=== PATIENT | female | born 1965 | race Caucasian/White ===

== ENCOUNTER 2017-07-05 17:21 | Observation (INO) ==
[2017-07-05] MEDS ORDERED: Acetaminophen 325 MG TABLET PO PRN (21:32)
[2017-07-05] MEDS ORDERED: Ondansetron 4 MG/2 ML VIAL IVP PRN (21:32)
[2017-07-05] MEDS ORDERED: *HR* Morphine 2 MG/ML SYRINGE IVP PRN (21:32)
[2017-07-05] MEDS ORDERED: *HR* Heparin 5,000 UNIT/ML VIAL IVP PRN ×2 (21:32)
[2017-07-05] MEDS ORDERED: Naloxone 0.4 MG/ML INJ IVP PRN (21:32)
[2017-07-05] MEDS: Heparin 25,000 UNIT/500 ML D5W 25,000 UNIT/500 ML BAG IVC SCH (21:45)
--- NOTE | 2017-07-05 22:19 | Internal Med History&Physical ---
Date of Encounter: 07/05/17 Time of Encounter: 20:20 Assessment and Plan (1) Left leg DVT Current visit: No Status: Acute 1. Patient remains on heparin drip per protocol. 2. Strict bedrest for now. 3. Elevate LLE. 4. Convert to oral anticoagulation once work-up completed. 5. Likely needs hypercoagulable work-up as outpatient -- can be performed by oncology at follow up. Qualifiers: Affected thrombotic vein of extremity: unspecified vein of extremity Chronicity: acute Qualified Code(s): I82.402 - Acute embolism and thrombosis of unspecified deep veins of left lower extremity (2) Pulmonary embolism Current visit: Yes Status: Suspected 1. Based upon history of SOB and chest tightness and the new finding of DVT, I have a high clinical suspicion she has PE. 2. Will order V/Q scan for the morning. 3. Will order ECHO for the morning. 4. Continue heparin drip for now. 5. May need HEM/ONC consult inpatient for further guidance. Qualifiers: Pulmonary embolism type: other Chronicity: acute Acute cor pulmonale presence: without acute cor pulmonale Qualified Code(s): I26.99 - Other pulmonary embolism without acute cor pulmonale (3) Hypothyroid Current visit: No Status: Chronic 1. Continue home medications. 2. Outpatient follow up. Qualifiers: Hypothyroidism type: unspecified Qualified Code(s): E03.9 - Hypothyroidism , unspecified (4) DVT prophylaxis Current visit: Yes Status: Acute 1. Patient has acute DVT -- on heparin drip presently. Internal Medicine - H&P: HPI Chief complaint: LLE swelling/pain; SOB; CP Admitted From: Hospital to Hospital Transfer Plans for Post Hospital Care: Home History of present illness: Ms. Iabnez is a 51 year old female who presents in transfer from [facility] ER for acute left lower extremity DVT. She complained of left lower extremity pain and swelling for the last few days. Her PCP ordered Dopplers of her left lower extremity which revealed acute thrombus. She was therefore transferred here to [facility] on a heparin drip. Upon my assessment of the patient, she states she has had multiple PEs in the past and had been on Coumadin for 4 years. She has been off of Coumadin since 2012. She states that the pain, swelling, and cramping her left lower extremity actually started about 3 weeks ago and she sought treatment recently by her PCP. Shortly after her leg pains, she also developed some shortness of breath with exertion and some vague chest tightness as well. Given her prior history of PE, current DVT findings, and above symptoms, I have a high clinical index of suspicion for PE presently. She will remain on heparin drip and we will proceed with workup in the morning including a VQ scan and echocardiogram. I would like to hold off on CT angiogram of the chest given her chronic kidney disease. Regarding her PE history, she states she has never had a hypercoagulable workup. She does have history of breast cancer, however, and likely is hypercoagulable due to her cancer history. There is no familial history of blood clots that I could gather. She denies any fevers, chills, cough, chest congestion, vomiting, or diarrhea. Past Med Surg Social Fam HX - Past Medical History Attestation: Yes The following information was validated with the patient. Source: patient, old records reviewed Medical history: cancer, GERD, hyperlipidemia, hypertension, kidney stones, thyroid disease Psychiatric history: anxiety, bipolar - Past Surgical History Surgical History: breast surgery, cholecystectomy, hysterectomy - Social History Smoking Status: Former smoker Smokeless Tobacco Status: No Alcohol use: none Drug use: none Current living situation: Home, With Family Activity Level: Independent ambulation Recent Out of Country Travel Within the Last 8 Weeks: No - Family History Mother Hx Family Medical Disorders: No (no h/o DVT/PE) Father Hx Family Medical Disorders: No (no h/o DVT/PE) Internal Medicine - H&P: Meds Cholecalciferol (Vitamin D3) [Vitamin D] 1,000 unit PO DAILY 04/07/15 [History] Pantoprazole Sodium [Protonix] 40 mg PO DAILY 04/07/15 [History] Losartan Potassium [Cozaar] 75 mg PO DAILY 10/06/15 [History] Aspirin Enteric Coated [Aspirin EC] 81 mg PO DAILY 07/05/17 [History] Buspirone HCl [Buspar] 10 mg PO TID 07/05/17 [History] Carvedilol [Carvedilol] 12.5 mg PO BID 07/05/17 [History] Folic Acid 1 mg PO DAILY 07/05/17 [History] Levothyroxine [Synthroid] 88 mcg PO 0630 07/05/17 [History] Topiramate [Topamax] 50 mg PO QAM 07/05/17 [History] Trazodone HCl 100 mg PO HS 07/05/17 [History] 3 Allergy/AdvReac Type Severity Reaction Status Date / Time lisinopril Allergy Anaphylaxis Verified 07/05/17 15:25 Penicillins Allergy Hives Verified 07/05/17 15:25 - Constitutional Constitutional: no chills, no fever(s), no night sweats - EENT Eyes: no blurry vision, no change in vision Ears: no ear pain, no tinnitus Nose, mouth and throat: no nasal congestion, no sinus pressure, no sore throat - Cardiovascular Cardiovascular ROS IM: chest pain, dyspnea, dyspnea on exertion, edema ( unilateral -- LLE), no palpitations, no paroxysmal nocturnal dyspnea, no syncope - Respiratory Respiratory: dyspnea, dyspnea on exertion, no cough, no hemoptysis, no chest congestion, no excessive phlegm production, no change in phlegm color - Gastrointestinal Gastrointestinal: no abdominal pain, no diarrhea, no hematemesis, no hematochezia, no melena, no nausea, no vomiting - Genitourinary Genitourinary: no dysuria, no flank pain, no hematuria - Musculoskeletal Musculoskeletal ROS IM: limited range of motion (LLE), muscle cramps, no back pain, no joint swelling - Integumentary Integumentary IM: no rash, no jaundice - Neurological Neurological ROS: no dizziness, no focal weakness, no frequent falls - Psychiatric Psychiatric: no anxiety, no depression - Endocrine Endocrine IM: no polydipsia, no polyuria - Hematologic/Lymphatic Hematologic/Lymphatic: no easy bruising, no lymphadenopathy - Allergic/Immunologic Allergic/Immunologic: no wheezing, no GI upset with certain foods - Constitutional Vitals: Temp Pulse Resp BP Pulse Ox 97.7 F 62 16 117/73 98 07/05/17 19:34 07/05/17 19:34 07/05/17 19:34 07/05/17 19:34 07/05/17 19:34 General appearance: Present: cooperative, A&O X 3, pleasant, no acute distress, answers questions appropriately - Head Head exam: Present: atraumatic, normal inspection - Eye Eye exam: Present: EOMI, normal appearance, PERRL. Absent: scleral icterus Pupils: Present: normal accommodation - ENT ENT exam: Present: mucous membranes moist, normal exam - Neck Neck exam general surgery: Present: full ROM, supple. Absent: lymphadenopathy, tenderness - Respiratory Respiratory exam: Present: CTAB. Absent: chest wall tenderness, rales, respiratory distress, wheezes - Cardiovascular Cardiovascular exam: Present: RRR, +S1, +S2. Absent: diastolic murmur, systolic murmur - GI/Abdominal GI/Abdominal exam: Present: normal bowel sounds, soft. Absent: hepatomegaly, mass, splenomegaly, tenderness - Extremities Exam Extremities exam: Present: calf tenderness (LLE), normal capillary refill, pedal edema (unilateral ), tenderness (left calf). Absent: joint swelling - Back Exam Back exam: Absent: CVA tenderness (L), CVA tenderness (R) - Neurological Exam Neurological exam: Present: alert, CN II-XII intact, oriented X3, no focal deficits - Psychiatric Psychiatric exam: Present: normal affect, normal mood - Skin Skin exam: Present: dry, warm. Absent: rash Internal Med - H&P Results - Labs Labs: I reviewed her labs from [place] include the following: WBC 8.2 Hemoglobin 10.6 Hematocrit 31.1 Platelet count 225 PT 11.3 INR 1.1 PTT 27.5 Sodium 143 Potassium 2.7 Chloride 114 Carbon dioxide 20 BUN 19 Creatinine 1.44 Verbal report was made that she had positive Dopplers of her left lower extremity for DVT -- official report pending - VTE Reasons for not Prescribing Prophylaxis: Not indicated-Anticoagulated or INR therapeutic
[2017-07-05 22:29] LABS: Hematocrit 29.3 % (35.3-44.9); Hemoglobin 9.8 g/dL (11.5-15.4); Mean Corpuscular HGB Conc 33.4 g/dL (31.6-35.5); Mean Corpuscular Hemoglobin 29.8 pg (28.0-33.3); Mean Corpuscular Volume 89.1 fL (83.0-100.0); Mean Platelet Volume 9.9 fL (9.4-12.4); Platelet Count 201 K/mcL (140-400); Red Blood Count 3.29 M/mcL (3.82-4.97); Red Cell Distribution Width 12.1 % (11.5-14.5)
[2017-07-05 22:34] LABS: INR 1.1; Prothrombin Time 12.1 Seconds (9.4-12.1)
[2017-07-05] MEDS: 0.9 % Sodium Chloride 1,000 ML IVC SCH (22:44)
[2017-07-05] MEDS ORDERED: traZODone 50 MG TABLET PO SCH (23:58)
[2017-07-06 04:07] LABS: Hematocrit 28.6 % (35.3-44.9); Hemoglobin 9.6 g/dL (11.5-15.4); Immature Granulocytes % 0.3 % (0-4); Lymphocytes % 41.2 %; Mean Corpuscular HGB Conc 33.6 g/dL (31.6-35.5); Mean Corpuscular Hemoglobin 29.7 pg (28.0-33.3); Mean Corpuscular Volume 88.5 fL (83.0-100.0); Mean Platelet Volume 9.8 fL (9.4-12.4); Monocytes % 6.8 %; Platelet Count 192 K/mcL (140-400); Red Blood Count 3.23 M/mcL (3.82-4.97); Red Cell Distribution Width 12.2 % (11.5-14.5); Segmented Neutrophils % 47.7 %
[2017-07-06 04:08] LABS: Basophils # 0.1 K/mcL (0.0-0.2); Basophils % 0.9 %; Eosinophils # 0.2 K/mcL (0.0-0.6); Eosinophils % 3.1 %; Lymphocytes # 3.2 K/mcL (0.6-4.6); Monocytes # 0.5 K/mcL (0.0-1.3); Neutrophils # 3.7 K/mcL (1.6-8.9)
[2017-07-06 04:43] LABS: Albumin 2.9 g/dL (3.5-5.7); Albumin/Globulin Ratio 1.2 (1.1-2.2); Bilirubin,Total 0.2 mg/dL (0.3-1.0); Calcium 8.3 mg/dL (8.6-10.3); Chol/HDL Ratio 6.2 (0-4.9); Globulin 2.5 g/dL (2.4-3.5); Magnesium 1.8 mg/dL (1.6-2.6); Potassium 3.4 mEq/L (3.5-5.1); Total Protein 5.4 g/dL (6.4-8.9)
[2017-07-06] MEDS ORDERED: Aspirin Enteric Coated 81 MG Tablet PO SCH (09:00)
[2017-07-06] MEDS ORDERED: Topiramate 25 MG TABLET PO SCH (09:00)
[2017-07-06] MEDS ORDERED: Cholecalciferol (D-3) 1,000 UNIT TABLET PO SCH (09:00)
[2017-07-06] MEDS ORDERED: Folic Acid 1 MG TABLET PO SCH (09:00)
[2017-07-06] MEDS: Heparin 25,000 UNIT/500 ML D5W 25,000 UNIT/500 ML BAG IVC SCH (10:05)
[2017-07-06 10:58] VITALS: BP 115/72
--- NOTE | 2017-07-06 13:44 | Discharge Summary ---
Date of Encounter: 07/06/17 Time of Encounter: 13:42 - Discharge Diagnosis (1) DVT (deep venous thrombosis) Priority: Primary Status: Acute Qualifiers: DVT location: lower extremity Affected thrombotic vein of extremity: femoral Chronicity: acute Laterality: left Qualified Code(s): I82.412 - Acute embolism and thrombosis of left femoral vein (2) Pulmonary embolism Priority: Primary Status: Suspected Qualifiers: Pulmonary embolism type: other Chronicity: acute Acute cor pulmonale presence: without acute cor pulmonale Qualified Code(s): I26.99 - Other pulmonary embolism without acute cor pulmonale (3) Bipolar 1 disorder, manic, moderate Priority: Secondary Status: Acute (4) Breast cancer, right breast Priority: Secondary Status: Acute Qualifiers: Breast location: unspecified site of breast Estrogen receptor status: unspecified Patient sex: female Qualified Code(s): C50.911 - Malignant neoplasm of unspecified site of right female breast - Discharge Medications Prescriptions: Rivaroxaban [Xarelto] 15 mg PO BID #42 tablet Rivaroxaban [Xarelto] 20 mg PO DAILY #30 tablet Home Medications: Cholecalciferol (Vitamin D3) [Vitamin D] 1,000 unit PO DAILY 04/07/15 [History] Pantoprazole Sodium [Protonix] 40 mg PO DAILY 04/07/15 [History] Losartan Potassium [Cozaar] 75 mg PO DAILY 10/06/15 [History] Aspirin Enteric Coated [Aspirin EC] 81 mg PO DAILY 07/05/17 [History] Buspirone HCl [Buspar] 10 mg PO TID 07/05/17 [History] Carvedilol 12.5 mg PO BID 07/05/17 [History] Folic Acid 1 mg PO DAILY 07/05/17 [History] Levothyroxine [Synthroid] 88 mcg PO 0630 07/05/17 [History] Topiramate [Topamax] 50 mg PO QAM 07/05/17 [History] Trazodone HCl 100 mg PO HS 07/05/17 [History] Rivaroxaban [Xarelto] 15 mg PO BID #42 tablet 07/06/17 [Rx] Rivaroxaban [Xarelto] 20 mg PO DAILY #30 tablet 07/06/17 [Rx] Allergies/Adverse Reactions: 3 Allergy/AdvReac Type Severity Reaction Status Date / Time lisinopril Allergy Anaphylaxis Verified 07/05/17 15:25 Penicillins Allergy Hives Verified 07/05/17 15:25 Procedures/tests Complete & Pending: Procedures Performed prior 72 hours Category Date Time Status ECG 12 lead ECG [ECG] Routine Y 07/05/17 21:32 Ordered EV echocardiogram Routine Y 07/06/17 21:32 Completed Date of admission: 07/05/17 19:20 Primary care physician: Yas Chowdary CNP - Patient Status Disposition: Home, Self-Care Condition: Fair Overall status at discharge: patient is back to baseline - Discharge Instructions Follow Up With: Yas Chowdary CNP [Primary Care Provider] - 07/13/17 11:40 am - Diet and Activity Activity: increase activity as tolerated Diet: regular diet Hospital course: Ms. Ibanez is a 51 year old female who presented as a transfer from [facility] ER for acute left lower extremity DVT. She complained of left lower extremity pain and swelling for the last few days. Her PCP ordered Dopplers of her left lower extremity which revealed acute thrombus. She was therefore transferred here to [facility] on a heparin drip. Her facility she was hemodynamically stable. She was maintained on heparin and eventually switched to xarelto. The patient has not had an occurrence of a PE about 4 years ago and was on Coumadin and was taken off that multiple years back. We believe that her PEs are stemming from her history of breast cancer. The patient had acute VQ scan done which came back with a high probability for PE. An echocardiogram showed normal right heart strain with an EF of 65% and mild left ventricular systolic dysfunction. She was discharged on 07/06/2017 in stable condition with follow-up with her primary care physician is recommended. - Time Spent with Patient Total time spent providing and/or coordinating discharge services: Greater than 30 minutes - Constitutional Vitals: Temp Pulse Resp BP Pulse Ox 98.4 F 66 17 115/72 99 07/06/17 10:55 07/06/17 10:55 07/06/17 10:55 07/06/17 10:55 07/06/17 10:55 General appearance: Present: cooperative, A&O X 3, pleasant, no acute distress, answers questions appropriately Exam: GEN: NAD CVS: RRR. S1, S2, No m/r/g RESP: CTAB ABD: Soft, NT, ND, +BS EXT: No edema. 2+ DP. No rashes NEURO: Nonfocal - VTE Reasons for not Prescribing Prophylaxis: Not indicated-Anticoagulated or INR therapeutic
[2017-07-06] MEDS: 0.9 % Sodium Chloride 1,000 ML IVC SCH (14:35)
[2017-07-06] MEDS ORDERED: *HR* Rivaroxaban 15 MG TABLET PO SCH (18:00)
[2017-07-06] MEDS ORDERED: traZODone 50 MG TABLET PO SCH (21:00)
== END 2017-07-06 17:55 | disposition home or self-care (01) ==
LOC: 2ANU → INTOOBSV 19:20 → 2ANU 19:20
PROVIDERS: ADMIT Hospitalist; ATTEND Hospitalist

== ENCOUNTER 2017-10-16 13:10 | Observation (INO) ==
--- NOTE | 2017-10-16 16:50 | Internal Med History&Physical ---
Date of Encounter: 10/16/17 Time of Encounter: 16:39 Internal Medicine - H&P: HPI Chief complaint: Chest pain Admitted From: Home Plans for Post Hospital Care: Home History of present illness: Ms. Ibanez is a 52 year old female who has history of breast cancer and stated post the lumpectomy, history of recurrent PE and DVT on his xarelto, severe GERD , hypertension, bipolar presenting to [place] emergency room for atypical chest pain. Chest pains located to the right-sided chest, started from right upper quandary, radiating to the right shoulder, right neck, sharp constant, 8 out of 10, deep breaths make it worse, Associated was shortness of breath. She denies palpation diaphoresis no dizziness. CXR is negative D-dimer is negative. She had cholecystectomy. First troponin was negative. Patient is transferred here for stress test. Past Med Surg Social Fam HX - Past Medical History Medical history: cancer, DVT, GERD, hyperlipidemia, hypertension, kidney stones , malignancy, migraine, pulmonary embolus, renal disease, thyroid disease Psychiatric history: anxiety, bipolar, depression - Past Surgical History Surgical History: breast surgery, cholecystectomy, hysterectomy, other - Social History Smoking Status: Former smoker Smokeless Tobacco Status: No Alcohol use: none Drug use: none - Family History Grandmother Hx Family Cardiac Disorders: Yes Hx Family Cancer: Yes Father Living Status: Hx Family Cancer: Yes Mother Living Status: Still Living Hx Family Cardiac Disorders: Yes Internal Medicine - H&P: Meds Cholecalciferol (Vitamin D3) [Vitamin D] 1,000 unit PO DAILY 04/07/15 [History] Losartan Potassium [Cozaar] 75 mg PO DAILY 10/06/15 [History] Aspirin Enteric Coated [Aspirin EC] 81 mg PO DAILY 07/05/17 [History] Buspirone HCl [Buspar] 10 mg PO TID 07/05/17 [History] Carvedilol 12.5 mg PO BID 07/05/17 [History] Folic Acid 1 mg PO DAILY 07/05/17 [History] Levothyroxine [Synthroid] 88 mcg PO 0630 07/05/17 [History] Topiramate [Topamax] 50 mg PO QAM 07/05/17 [History] Trazodone HCl 100 mg PO HS 07/05/17 [History] Rivaroxaban [Xarelto] 20 mg PO DAILY #30 tablet 07/06/17 [Rx] Lansoprazole [Prevacid] 15 mg PO QAM 09/01/17 [History] Docusate Sodium [Dok] 100 mg PO DAILY PRN 09/22/17 [History] Ferrous Sulfate 325 mg PO TID 09/22/17 [History] Lamotrigine [Lamictal (Blue)] 50 mg PO DAILY 09/22/17 [History] Ondansetron HCl [Zofran] 4 mg PO Q8HR PRN 09/22/17 [History] Polyethylene Glycol 3350 [MiraLAX] 17 gm PO PRN PRN 09/22/17 [History] 3 Allergy/AdvReac Type Severity Reaction Status Date / Time lisinopril Allergy Anaphylaxis Verified 09/22/17 11:16 Penicillins Allergy Anaphylaxis Verified 09/22/17 11:16 All Systems PM: A 10-system review of systems was performed and is negative for pertinent findings except as documented above in the HPI. - Constitutional Vitals: Temp Pulse Resp BP Pulse Ox 98.2 F 54 16 121/81 96 10/16/17 16:13 10/16/17 16:13 10/16/17 16:13 10/16/17 16:13 10/16/17 16:13 General appearance: Present: A&O X 3, pleasant, obese Exam: CONSTITUTIONAL: Patient appears as an age appropriate female well developed, in no acute distress. EYES Clear sclerae, bilateral pupils are equal, reactive to light and accommodation. Extraocular movements are intact RESPIRATORY: No accessory muscle use, bilateral clear to auscultation, no wheezing, no crackles/rales. CARDIOVASCULAR: Regular heart rate, normal S1 and S2, no murmurs GASTROINTESTINAL: bowel sounds present, soft, no tenderness. No hepatosplenomegaly. No bilateral CVA tenderness MUSCULOSKELETAL: Joints in normal range of motion, no clubbing, no edema, no cyanosis. Bilateral peripheral pulses 2+ LYMPHATIC no lymphadenopathy in neck, groin and axilla bilaterally, no thyromegaly. NEUROLOGIC: CN II to XII are grossly intact, no focal neurological deficit. Deep tendon reflexes 2+ bilaterally. Normal light touch sensation to upper and lower extremity PSYCHIATRIC: Oriented x3, with good insight, mood is euthymic. No hallucinations or delusions. SKIN: Skin warm and dry, no rashes, no open wound. - Assessment and plan (1) Chest pain Current Visit: Yes Status: Acute Assessment and plan: Atypical chest pain, negative troponin negative d-dimer We will check echocardiogram stress test tomorrow will follow-up troponin Patient has right upper quadrant rate tenderness, but the stated post a cholecystectomy, will check RUQ US Qualifiers: Chest pain type: unspecified Qualified Code(s): R07.9 - Chest pain, unspecified (2) Pulmonary embolism Current Visit: Yes Status: Chronic Assessment and plan: Patient had her first PE in 2010 was placed on Coumadin, then he had another episode of PE in June 2017 after he she stopped her Coumadin. Currently patient has been on Xarelto Qualifiers: Pulmonary embolism type: other Chronicity: acute Acute cor pulmonale presence: without acute cor pulmonale Qualified Code(s): I26.99 - Other pulmonary embolism without acute cor pulmonale (3) Bipolar 1 disorder, manic, moderate Current Visit: Yes Status: Chronic (4) Breast cancer, right breast Current Visit: Yes Status: Chronic Qualifiers: Breast location: unspecified site of breast Estrogen receptor status: unspecified Patient sex: female Qualified Code(s): C50.911 - Malignant neoplasm of unspecified site of right female breast (5) Essential hypertension Current Visit: Yes Status: Chronic (6) GERD (gastroesophageal reflux disease) Current Visit: Yes Status: Chronic Qualifiers: Esophagitis presence: esophagitis presence not specified Qualified Code(s) : K21.9 - Gastro-esophageal reflux disease without esophagitis (7) Hypothyroid Current Visit: Yes Status: Chronic Qualifiers: Hypothyroidism type: unspecified Qualified Code(s): E03.9 - Hypothyroidism , unspecified - Time Spent With Patient Total time spent is greater than 50% in coordination of care (as documented) at patient's floor/unit and/or counseling patient: Greater than 35 minutes
[2017-10-16] MEDS ORDERED: Ondansetron ODT 4 MG TAB.RAPDIS PO PRN (17:14)
[2017-10-16] MEDS ORDERED: Nitroglycerin 0.4 MG TAB.SUBL SL PRN (17:17)
[2017-10-16] MEDS: traZODone 50 MG TABLET PO SCH (21:04)
[2017-10-17 01:23] LABS: Basophils % 0.6 %; Eosinophils # 0.1 K/mcL (0.0-0.6); Eosinophils % 1.6 %; Hemoglobin 11.3 g/dL (11.5-15.4); Immature Granulocytes % 0.2 % (0-4); Lymphocytes # 2.8 K/mcL (0.6-4.6); Lymphocytes % 43.4 %; Mean Corpuscular HGB Conc 32.3 g/dL (31.6-35.5); Mean Corpuscular Hemoglobin 29.5 pg (28.0-33.3); Mean Corpuscular Volume 91.4 fL (83.0-100.0); Mean Platelet Volume 10.5 fL (9.4-12.4); Monocytes # 0.5 K/mcL (0.0-1.3); Monocytes % 7.6 %; Platelet Count 179 K/mcL (140-400); Red Blood Count 3.83 M/mcL (3.82-4.97); Red Cell Distribution Width 14.4 % (11.5-14.5); Segmented Neutrophils % 46.6 %
[2017-10-17 01:26] LABS: INR 1.2; Prothrombin Time 12.7 Seconds (9.4-12.1)
[2017-10-17 01:41] LABS: Albumin 3.4 g/dL (3.5-5.7); Albumin/Globulin Ratio 1.3 (1.1-2.2); Bilirubin,Total 0.3 mg/dL (0.3-1.0); Calcium 8.5 mg/dL (8.6-10.3); Globulin 2.6 g/dL (2.4-3.5); Magnesium 1.9 mg/dL (1.6-2.6); Potassium 3.6 mEq/L (3.5-5.1)
[2017-10-17] MEDS ORDERED: Regadenoson 0.4 MG/5 ML SYRINGE IVP ONE (05:29)
--- NOTE | 2017-10-17 09:32 | Internal Med Progress Note ---
Date of Encounter: 10/17/17 Time of Encounter: 09:29 - Assessment and plan (1) Chest pain Current Visit: Yes Status: Acute Assessment and plan: Atypical right-sided chest pain with radiation to right shoulder, right neck and right upper quadrant. Troponins negative 2 at 0.03. Last TTE 07/06/17 with an EF of 65%, mild left ventricular diastolic dysfunction Has had cholecystectomy. Abdomen nontender to palpation. No nausea or vomiting. History of PEs but no prior MIs. Chest pain has improved today now, 2/10 continues to be right-sided atypical chest pain Plan for stress this morning Remain on telemetry Continue nothing by mouth status Right upper quadrant ultrasound unremarkable without ductal obstruction or ductal dilatation Qualifiers: Chest pain type: unspecified Qualified Code(s): R07.9 - Chest pain, unspecified (2) Pulmonary embolism Current Visit: Yes Status: Chronic Assessment and plan: History of multiple PEs. Most recent PE in June 2017. She is currently on Xarelto. No respiratory distress at this time, lungs CTA AP and L and resting comfortably on room air Presented with atypical right-sided chest pain, troponin negative 2, no EKG changes, no respiratory distress upon presentation D-dimer negative. Continue to monitor respiratory status Continue Xarelto at home dose Qualifiers: Pulmonary embolism type: other Chronicity: acute Acute cor pulmonale presence: without acute cor pulmonale Qualified Code(s): I26.99 - Other pulmonary embolism without acute cor pulmonale (3) Bipolar 1 disorder, manic, moderate Current Visit: Yes Status: Chronic (4) Breast cancer, right breast Current Visit: Yes Status: Chronic Qualifiers: Breast location: unspecified site of breast Estrogen receptor status: unspecified Patient sex: female Qualified Code(s): C50.911 - Malignant neoplasm of unspecified site of right female breast (5) Essential hypertension Current Visit: Yes Status: Chronic Assessment and plan: Stable, continue home anti-HTN medications (6) GERD (gastroesophageal reflux disease) Current Visit: Yes Status: Chronic Qualifiers: Esophagitis presence: esophagitis presence not specified Qualified Code(s) : K21.9 - Gastro-esophageal reflux disease without esophagitis (7) Hypothyroid Current Visit: Yes Status: Chronic Assessment and plan: Continue levothyroxine Qualifiers: Hypothyroidism type: unspecified Qualified Code(s): E03.9 - Hypothyroidism , unspecified (8) CKD (chronic kidney disease) Current Visit: Yes Status: Chronic Assessment and plan: BUN, creatinine and GFR stable in comparison to prior labs. Continue to closely monitor renal function Qualifiers: Chronic kidney disease stage: stage 3 (moderate) Qualified Code(s): N18.3 - Chronic kidney disease, stage 3 (moderate) (9) DVT prophylaxis Current Visit: Yes Status: Acute Assessment and plan: Xarelto - Time Spent With Patient Total time spent is greater than 50% in coordination of care (as documented) at patient's floor/unit and/or counseling patient: 25 - 35 minutes - Subjective Interval history: She has a history of breast cancer and stated post the lumpectomy, history of recurrent PE and DVT and is on xarelto, severe GERD, hypertension, bipolar presenting to [place] emergency room for atypical chest pain. Chest pains located to the right-sided chest, started from right upper quandary, radiating to the right shoulder, right neck Patient seen and examined at bedside today. In no distress at this time, vital signs stable. Continue supplements of mild right-sided chest pain, but reports that it has improved as of this morning. No nausea, shortness of breath or diaphoresis. Pain is 2/10. - Constitutional Vitals: Temp Pulse Resp BP Pulse Ox 97.9 F 69 17 106/65 97 10/17/17 07:05 10/17/17 07:05 10/17/17 07:05 10/17/17 07:05 10/17/17 07:53 General appearance: Present: A&O X 3, pleasant, obese - Head Head exam: Present: atraumatic, normocephalic - Eye Eye exam: Present: PERRL, conjuntiva pink, sclera anicteric Pupils: Present: PERRL - Neck Neck exam general surgery: Present: supple, trachea midline. Absent: lymphadenopathy - Respiratory Respiratory exam: Present: CTAB. Absent: accessory muscle use, rales, rhonchi, wheezes - Cardiovascular Cardiovascular exam: Present: RRR, +S1, +S2. Absent: diastolic murmur, gallop, rubs, systolic murmur - GI/Abdominal GI/Abdominal exam: Present: normal bowel sounds, soft, no peritoneal signs. Absent: distended, tenderness - Extremities Exam Extremities exam: Present: warm, radial pulses palpable and symmetrical. Absent : calf tenderness, cyanotic, pedal edema - Neurological Exam Neurological exam: Present: CN II-XII intact, oriented X3, no focal deficits. Absent: pronater drift, facial droop, speech deficit - Skin Skin exam: Present: dry, intact Internal Medicine: Result - Labs CBC & Chem 7: 10/17/17 00:08 10/17/17 00:08 Labs: Short CBC 10/17/17 Range/Units 00:08 WBC 6.5 (4.3-11.1) K/mcL Hgb 11.3 L (11.5-15.4) g/dL Hct 35.0 L (35.3-44.9) % Plt Count 179 (140-400) K/mcL Neutrophils # 3.0 (1.6-8.9) K/mcL BMP 10/17/17 00:08 Sodium 143 Potassium 3.6 Chloride 112 H Carbon Dioxide 25 BUN 17 Creatinine 1.22 H Glucose 105 Calcium 8.5 L Cardiac Enzymes 10/16/17 10/17/17 10/17/17 Range/Units 17:43 00:08 06:31 Troponin I < 0.03 < 0.03 < 0.03 (< 0.04) ng/mL Liver Function 10/17/17 Range/Units 00:08 Total Bilirubin 0.3 (0.3-1.0) mg/dL AST 11 L (13-39) Units/L ALT 7 (7-52) Units/L Alkaline Phosphatase 75 (34-104) Units/L Albumin 3.4 L (3.5-5.7) g/dL - ABG Interpretation ABG results: PT/INR, D-dimer PT 12.7 Seconds (9.4-12.1) H 10/17/17 00:08 - Impressions Impressions Abdomen Ultrasound 10/17/17 08:00 IMPRESSION: Unremarkable right upper quadrant ultrasound. D/ / 10/17/2017 08:50:57 Dalton Peterson MD / mary Interpreting Provider: Dalton Peterson MD Consult Discharge Plan - Plan Referrals: Yas Chowdary CNP [Primary Care Provider] -
[2017-10-17] MEDS: Cholecalciferol (D-3) 1,000 UNIT TABLET PO SCH (12:24)
[2017-10-17] MEDS: Folic Acid 1 MG TABLET PO SCH (12:24)
[2017-10-17] MEDS: *HR* Rivaroxaban 10 MG TABLET PO SCH (12:24)
[2017-10-17] MEDS: Topiramate 25 MG TABLET PO SCH (12:24)
[2017-10-17] MEDS: Aspirin Enteric Coated 81 MG Tablet PO SCH (12:26)
[2017-10-17] MEDS: lamoTRIgine 25 MG TABLET PO SCH (12:26)
[2017-10-17] MEDS ORDERED: Acetaminophen 325 MG TABLET PO PRN (12:34)
[2017-10-17] MEDS: traZODone 50 MG TABLET PO SCH (20:39)
[2017-10-18] MEDS: *HR* Rivaroxaban 10 MG TABLET PO SCH (07:49)
[2017-10-18] MEDS: Topiramate 25 MG TABLET PO SCH (07:49)
[2017-10-18] MEDS: Cholecalciferol (D-3) 1,000 UNIT TABLET PO SCH (07:49)
[2017-10-18] MEDS: Folic Acid 1 MG TABLET PO SCH (07:49)
[2017-10-18] MEDS: Aspirin Enteric Coated 81 MG Tablet PO SCH (07:49)
[2017-10-18] MEDS: lamoTRIgine 25 MG TABLET PO SCH (07:49)
[2017-10-18 08:31] LABS: Basophils # 0.1 K/mcL (0.0-0.2); Basophils % 0.7 %; Eosinophils # 0.1 K/mcL (0.0-0.6); Eosinophils % 1.9 %; Hematocrit 37.6 % (35.3-44.9); Hemoglobin 12.4 g/dL (11.5-15.4); Immature Granulocytes % 0.1 % (0-4); Lymphocytes # 2.1 K/mcL (0.6-4.6); Lymphocytes % 30.4 %; Mean Corpuscular Hemoglobin 29.4 pg (28.0-33.3); Mean Corpuscular Volume 89.1 fL (83.0-100.0); Mean Platelet Volume 10.3 fL (9.4-12.4); Monocytes # 0.5 K/mcL (0.0-1.3); Monocytes % 6.8 %; Neutrophils # 4.2 K/mcL (1.6-8.9); Platelet Count 191 K/mcL (140-400); Red Blood Count 4.22 M/mcL (3.82-4.97); Red Cell Distribution Width 14.2 % (11.5-14.5); Segmented Neutrophils % 60.1 %
[2017-10-18 09:04] LABS: BUN/Creatinine Ratio 14 (6-26); Blood Urea Nitrogen 15 mg/dL (6-20); Calcium 9.3 mg/dL (8.6-10.3); Carbon Dioxide 25 mEq/L (23-29); Chloride 111 mEq/L (98-107); Glucose 97 mg/dL (70-105); Osmolality,Calculated 295 (280-300); Potassium 4.5 mEq/L (3.5-5.1); Sodium 142 mEq/L (136-145); eGFR For African Americans > 60 (> 60); eGFR For Non-African Americans 53 (> 60)
--- NOTE | 2017-10-18 10:17 | Internal Med Progress Note ---
Date of Encounter: 10/18/17 Time of Encounter: 10:15 - Assessment and plan (1) Chest pain Current Visit: Yes Status: Acute Assessment and plan: And with Atypical right-sided chest pain with radiation to right shoulder, and right neck. Denies any chest pain currently. He is having pain in right shoulder intermittently. Pain is exacerbated with use of right upper extremity, Tenderness over the lateral and posterior shoulder joint, appears to be musculoskeletal pain. ACS workup included a 2 day stress test. Second stress test completed this morning. Awaiting results. Will remain nothing by mouth at this time until official stress test read. If stress test negative she can likely be discharged today. Cardiac workup has been negative thus far. Troponins negative 3 at 0.03, Last TTE 07/06/17 with an EF of 65%, mild left ventricular diastolic dysfunction Qualifiers: Chest pain type: unspecified Qualified Code(s): R07.9 - Chest pain, unspecified (2) Pulmonary embolism Current Visit: Yes Status: Chronic Assessment and plan: Currently taking Xarelto due to a history of multiple PEs. Most recent PE in June 2017. No respiratory distress during the stay, d-dimer found to be negative. Continue Xarelto upon discharge Qualifiers: Pulmonary embolism type: other Chronicity: acute Acute cor pulmonale presence: without acute cor pulmonale Qualified Code(s): I26.99 - Other pulmonary embolism without acute cor pulmonale (3) Bipolar 1 disorder, manic, moderate Current Visit: Yes Status: Chronic (4) Breast cancer, right breast Current Visit: Yes Status: Chronic Qualifiers: Breast location: unspecified site of breast Estrogen receptor status: unspecified Patient sex: female Qualified Code(s): C50.911 - Malignant neoplasm of unspecified site of right female breast (5) Essential hypertension Current Visit: Yes Status: Chronic Assessment and plan: BP is remained stable throughout the stay, continue home anti-HTN medications upon discharge (6) GERD (gastroesophageal reflux disease) Current Visit: Yes Status: Chronic Qualifiers: Esophagitis presence: esophagitis presence not specified Qualified Code(s) : K21.9 - Gastro-esophageal reflux disease without esophagitis (7) Hypothyroid Current Visit: Yes Status: Chronic Assessment and plan: Continue levothyroxine daily Qualifiers: Hypothyroidism type: unspecified Qualified Code(s): E03.9 - Hypothyroidism , unspecified (8) CKD (chronic kidney disease) Current Visit: Yes Status: Chronic Assessment and plan: BUN, creatinine and GFR stable in comparison to prior labs. History of CKD stage III Continue to closely monitor renal function Qualifiers: Chronic kidney disease stage: stage 3 (moderate) Qualified Code(s): N18.3 - Chronic kidney disease, stage 3 (moderate) (9) DVT prophylaxis Current Visit: Yes Status: Acute Assessment and plan: Continue Xarelto - Time Spent With Patient Total time spent is greater than 50% in coordination of care (as documented) at patient's floor/unit and/or counseling patient: 25 - 35 minutes - Subjective Interval history: She has a history of breast cancer and stated post the lumpectomy, history of recurrent PE and DVT and is on xarelto, severe GERD, hypertension, bipolar presenting to [place] emergency room for atypical right-sided chest pain, reporting the pain started in the right chest and radiation to his right shoulder. Patient seen and examined at bedside today. Resting comfortably in bed, in no distress at this time, vital signs stable. Reports chest pain has subsided. No nausea, shortness of breath or diaphoresis. Received second stress test today. Awaiting results - Constitutional Vitals: Temp Pulse Resp BP Pulse Ox 98.7 F 62 14 128/75 97 10/18/17 06:37 10/18/17 06:37 10/18/17 06:37 10/18/17 06:37 10/18/17 06:37 General appearance: Present: A&O X 3, pleasant, obese - Head Head exam: Present: atraumatic, normocephalic - Eye Eye exam: Present: PERRL, conjuntiva pink, sclera anicteric Pupils: Present: PERRL - Neck Neck exam general surgery: Present: supple, trachea midline. Absent: lymphadenopathy - Respiratory Respiratory exam: Present: CTAB. Absent: accessory muscle use, rales, rhonchi, wheezes - Cardiovascular Cardiovascular exam: Present: RRR, +S1, +S2. Absent: diastolic murmur, gallop, rubs, systolic murmur - GI/Abdominal GI/Abdominal exam: Present: normal bowel sounds, soft, no peritoneal signs. Absent: distended, tenderness - Extremities Exam Extremities exam: Present: warm, radial pulses palpable and symmetrical. Absent : calf tenderness, cyanotic, pedal edema - Neurological Exam Neurological exam: Present: CN II-XII intact, oriented X3, no focal deficits. Absent: pronater drift, facial droop, speech deficit - Skin Skin exam: Present: dry, intact Internal Medicine: Result - Labs CBC & Chem 7: 10/18/17 08:13 10/18/17 08:13 Labs: Short CBC 10/18/17 Range/Units 08:13 WBC 7.0 (4.3-11.1) K/mcL Hgb 12.4 (11.5-15.4) g/dL Hct 37.6 (35.3-44.9) % Plt Count 191 (140-400) K/mcL Neutrophils # 4.2 (1.6-8.9) K/mcL BMP 10/18/17 08:13 Sodium 142 Potassium 4.5 Chloride 111 H Carbon Dioxide 25 BUN 15 Creatinine 1.09 Glucose 97 Calcium 9.3 - ABG Interpretation ABG results: PT/INR, D-dimer PT 12.7 Seconds (9.4-12.1) H 10/17/17 00:08 - Impressions Impressions Abdomen Ultrasound 10/17/17 08:00 IMPRESSION: Unremarkable right upper quadrant ultrasound. D/ / 10/17/2017 08:50:57 Dalton Peterson MD / mary Interpreting Provider: Dalton Petersno MD Consult Discharge Plan - Plan Referrals: Yas Chowdary CNP [Primary Care Provider] -
--- NOTE | 2017-10-18 10:27 | Discharge Summary ---
- NOTES TO OUTPATIENT PROVIDER Notes to Outpatient Provider: Admitted to rule out ACS. Troponins found to be negative, no EKG changes concerning for ischemia. Underwent a 2 day stress test. Having right shoulder pain which is exacerbated by use of right upper extremity. May have musculoskeletal/joint inflammation contributing to her clinical presentation. She has been informed that she would need to follow up with her PCP for further assessment and evaluation of right shoulder. Orders not resulted at time of discharge: Pending orders 10/16/17 17:18 NM holger perf SPECT multi [NM] Routine 10/19/17 04:00 BMP [Basic Metabolic Panel] AM 0400 Complete Blood Count [HEME] AM 0400 10/20/17 04:00 BMP [Basic Metabolic Panel] AM 0400 Complete Blood Count [HEME] AM 0400 10/21/17 04:00 BMP [Basic Metabolic Panel] AM 0400 Complete Blood Count [HEME] AM 0400 Date of Encounter: 10/18/17 Time of Encounter: 10:25 - Discharge Diagnosis (1) Chest pain Priority: Primary Status: Acute Assessment and Plan: And with Atypical right-sided chest pain with radiation to right shoulder, and right neck. Denies any chest pain currently. He is having pain in right shoulder intermittently. Pain is exacerbated with use of right upper extremity, Tenderness over the lateral and posterior shoulder joint, appears to be musculoskeletal pain. ACS workup included a 2 day stress test. Second stress test completed this morning. Awaiting results. Will remain nothing by mouth at this time until official stress test read. If stress test negative she can likely be discharged today. Cardiac workup has been negative thus far. Troponins negative 3 at 0.03, Last TTE 07/06/17 with an EF of 65%, mild left ventricular diastolic dysfunction Qualifiers: Chest pain type: unspecified Qualified Code(s): R07.9 - Chest pain, unspecified (2) Pulmonary embolism Priority: Secondary Status: Chronic Assessment and Plan: Currently taking Xarelto due to a history of multiple PEs. Most recent PE in June 2017. No respiratory distress during the stay, d-dimer found to be negative. Continue Xarelto upon discharge Qualifiers: Pulmonary embolism type: other Chronicity: acute Acute cor pulmonale presence: without acute cor pulmonale Qualified Code(s): I26.99 - Other pulmonary embolism without acute cor pulmonale (3) Bipolar 1 disorder, manic, moderate Priority: Secondary Status: Chronic (4) Breast cancer, right breast Priority: Secondary Status: Chronic Qualifiers: Breast location: unspecified site of breast Estrogen receptor status: unspecified Patient sex: female Qualified Code(s): C50.911 - Malignant neoplasm of unspecified site of right female breast (5) Essential hypertension Priority: Secondary Status: Chronic Assessment and Plan: BP is remained stable throughout the stay, continue home anti-HTN medications upon discharge (6) GERD (gastroesophageal reflux disease) Priority: Secondary Status: Chronic Qualifiers: Esophagitis presence: esophagitis presence not specified Qualified Code(s) : K21.9 - Gastro-esophageal reflux disease without esophagitis (7) Hypothyroid Priority: Secondary Status: Chronic Assessment and Plan: Continue levothyroxine daily Qualifiers: Hypothyroidism type: unspecified Qualified Code(s): E03.9 - Hypothyroidism , unspecified (8) CKD (chronic kidney disease) Priority: Secondary Status: Chronic Assessment and Plan: BUN, creatinine and GFR stable in comparison to prior labs. History of CKD stage III Continue to closely monitor renal function Qualifiers: Chronic kidney disease stage: stage 3 (moderate) Qualified Code(s): N18.3 - Chronic kidney disease, stage 3 (moderate) (9) DVT prophylaxis Priority: Secondary Status: Acute Assessment and Plan: Continue Xarelto Hospital course: Ms. Ibanez is a 52 year old female with a history of breast cancer, status post post lumpectomy, history of recurrent PE and DVT and is currently taking Xarelto , patient has hypertension and bipolar. She was being seen due to right-sided atypical chest pain with radiation to the right shoulder and neck ascribed as constant and sharp. Patient was admitted for ACS rule out. EKG was unremarkable without any ST elevations, depression or T-wave inversion, troponin is negative 3, 2 day stress test with no ischemia noted. Patient is instructed to follow up with cardiology and primary care provider with any week of discharge. All vitals are stable, patient is denying any complaints with her concerns this time. She is being discharged on her own volition home. Discharge discussed with: patient, nurse - Time Spent with Patient Total time spent providing and/or coordinating discharge services: Greater than 30 minutes - Discharge Medications Home Medications: Cholecalciferol (Vitamin D3) [Vitamin D] 1,000 unit PO DAILY 04/07/15 [History] Losartan Potassium [Cozaar] 75 mg PO DAILY 10/06/15 [History] Aspirin Enteric Coated [Aspirin EC] 81 mg PO DAILY 07/05/17 [History] Buspirone HCl [Buspar] 10 mg PO TID 07/05/17 [History] Carvedilol 12.5 mg PO BID 07/05/17 [History] Folic Acid 1 mg PO DAILY 07/05/17 [History] Levothyroxine [Synthroid] 88 mcg PO 0630 07/05/17 [History] Topiramate [Topamax] 50 mg PO QAM 07/05/17 [History] Trazodone HCl 100 mg PO HS 07/05/17 [History] Rivaroxaban [Xarelto] 20 mg PO DAILY #30 tablet 07/06/17 [Rx] Lansoprazole [Prevacid] 15 mg PO QAM 09/01/17 [History] Docusate Sodium [Dok] 100 mg PO DAILY PRN 09/22/17 [History] Ferrous Sulfate 325 mg PO TID 09/22/17 [History] Ondansetron HCl [Zofran] 4 mg PO Q8HR PRN 09/22/17 [History] Polyethylene Glycol 3350 [MiraLAX] 17 gm PO PRN PRN 09/22/17 [History] lamoTRIgine [Lamictal] 100 mg PO DAILY 10/16/17 [History] lamoTRIgine [Lamictal] 50 mg PO DAILY tablet 10/18/17 [Rx] Allergies/Adverse Reactions: 3 Allergy/AdvReac Type Severity Reaction Status Date / Time lisinopril Allergy Anaphylaxis Verified 09/22/17 11:16 Penicillins Allergy Anaphylaxis Verified 09/22/17 11:16 Date of admission: 10/16/17 15:46 Primary care physician: Yas Chowdary CNP Discharging clinician: Phu Qiu Anticipated date of discharge: 10/18/17 - Constitutional Vitals: Temp Pulse Resp BP Pulse Ox 98.7 F 62 14 128/75 97 10/18/17 06:37 10/18/17 06:37 10/18/17 06:37 10/18/17 06:37 10/18/17 06:37 General appearance: Present: A&O X 3, pleasant, obese - Head Head exam: Present: atraumatic, normocephalic - Eye Eye exam: Present: PERRL, conjuntiva pink, sclera anicteric Pupils: Present: PERRL - Neck Neck exam general surgery: Present: supple, trachea midline. Absent: lymphadenopathy - Respiratory Respiratory exam: Present: CTAB. Absent: accessory muscle use, rales, rhonchi, wheezes - Cardiovascular Cardiovascular exam: Present: RRR, +S1, +S2. Absent: diastolic murmur, gallop, rubs, systolic murmur - GI/Abdominal GI/Abdominal exam: Present: normal bowel sounds, soft, no peritoneal signs. Absent: distended, tenderness - Extremities Exam Extremities exam: Present: warm, radial pulses palpable and symmetrical. Absent : calf tenderness, cyanotic, pedal edema - Neurological Exam Neurological exam: Present: CN II-XII intact, oriented X3, no focal deficits. Absent: pronater drift, facial droop, speech deficit - Skin Skin exam: Present: dry, intact - Patient Status Disposition: Home, Self-Care Condition: Good Overall status at discharge: patient is back to baseline - Discharge Instructions Instructions: Chest Pain (DC) Follow Up With: Cardiology [facility] [Provider Group] - 11/16/17 1:00 pm (This appointment is with Ravi Suarez CNP) Yas Chowdary CNP [Primary Care Provider] - 10/26/17 4:30 pm - Diet and Activity Diet: advance to your usual diet
[2017-10-18 11:24] VITALS: BP 101/64
== END 2017-10-18 15:51 | disposition home or self-care (01) ==
LOC: 3BNU
PROVIDERS: ADMIT Hospitalist; ATTEND Hospitalist

== ENCOUNTER 2021-11-04 10:47 | Inpatient (IN) ==
[2021-11-04] MEDS ORDERED: Naloxone 0.4 MG/ML INJ IVP PRN (15:17)
[2021-11-04] MEDS ORDERED: Acetaminophen 325 MG TABLET PO PRN (15:17)
[2021-11-04] MEDS ORDERED: Albumin 25% 25gram/100mL 25 GM/100 ML IV.SOLN IVPB ONE (15:57)
[2021-11-04] MEDS ORDERED: Cefepime HCl 2,000 MG in 0.9 % Sodium Chloride 10 ML IVP SCH (16:00)
[2021-11-04] MEDS ORDERED: Azithromycin 250 MG TABLET PO SCH (16:00)
[2021-11-04 16:39] LABS: Adenovirus Not Detected (Not Detect); Bordetella Pertussis Not Detected (Not Detect); Chlamydophila pneumoniae Not Detected (Not Detect); Coronavirus 229E Not Detected (Not Detect); Coronavirus HKU1 Not Detected (Not Detect); Coronavirus NL63 Not Detected (Not Detect); Coronavirus OC43 Not Detected (Not Detect); Human Metapneumovirus Not Detected (Not Detect); Human Rhinovirus/Enterovirus Not Detected (Not Detect); Influenza A Subtype 2009 H1 Not Detected (Not Detect); Influenza B Not Detected (Not Detect); Mycoplasma pneumoniae Not Detected (Not Detect); Parainfluenza Virus 1 Not Detected (Not Detect); Parainfluenza Virus 2 Not Detected (Not Detect); Parainfluenza Virus 3 Not Detected (Not Detect); Parainfluenza Virus 4 Not Detected (Not Detect); Respiratory Syncytial Virus Not Detected (Not Detect); SARS-CoV-2 Not Detected (Not Detect)
[2021-11-04] MEDS ORDERED: Benzonatate 100 MG CAPSULE PO PRN (16:58)
[2021-11-04] MEDS: *HR* Rivaroxaban 10 MG TABLET PO SCH (17:38)
[2021-11-04] MEDS: *HR* OxyCODONE Immed Rel 5 MG TABLET PO PRN (17:38)
[2021-11-04] MEDS: Budesonide/Formoterol 160/4.5 1 PUFF INH IH SCH (20:37)
[2021-11-04] MEDS: Topiramate 100 MG TABLET PO SCH (20:59)
[2021-11-04] MEDS: Letrozole 2.5 MG TABLET PO SCH (21:00)
[2021-11-04] MEDS: lamoTRIgine 100 MG TABLET PO SCH (21:00)
[2021-11-04] MEDS: Famotidine 20 MG TABLET PO SCH (21:01)
[2021-11-05] MEDS: *HR* OxyCODONE Immed Rel 5 MG TABLET PO PRN ×3 (02:21→20:07)
[2021-11-05 05:41] LABS: INR 2.1; Prothrombin Time 23.2 Seconds (9.4-12.1)
[2021-11-05 06:00] LABS: Calcium 8.3 mg/dL (8.6-10.3); Magnesium 2.2 mg/dL (1.6-2.6); Potassium 3.7 mEq/L (3.5-5.1)
[2021-11-05] MEDS: Aspirin Enteric Coated 325 MG Tablet PO SCH (09:32)
[2021-11-05] MEDS: Topiramate 25 MG TABLET PO SCH (09:32)
[2021-11-05] MEDS: polyethylene glycoL 3350 17 GM POWD.PACK PO SCH (09:33)
[2021-11-05] MEDS: Famotidine 20 MG TABLET PO SCH ×2 (09:33→20:08)
[2021-11-05] MEDS: lamoTRIgine 100 MG TABLET PO SCH ×2 (09:33→20:09)
[2021-11-05] MEDS: Tiotropium 10 INH DOSE IH SCH (10:18)
[2021-11-05] MEDS: Budesonide/Formoterol 160/4.5 1 PUFF INH IH SCH ×2 (10:19→19:58)
[2021-11-05 11:54] LABS: Immature Granulocytes % 0.5 % (0-4); Red Cell Distribution Width 14.8 % (11.5-14.5)
[2021-11-05 11:55] LABS: Basophils % 0.5 %; Eosinophils # 0.2 K/mcL (0.0-0.6); Eosinophils % 2.5 %; Hematocrit 18.1 % (35.3-44.9); Lymphocytes # 0.7 K/mcL (0.6-4.6); Lymphocytes % 12.5 %; Mean Corpuscular HGB Conc 30.4 g/dL (31.6-35.5); Mean Corpuscular Hemoglobin 33.3 pg (28.0-33.3); Mean Corpuscular Volume 109.7 fL (83.0-100.0); Mean Platelet Volume 9.1 fL (9.4-12.4); Monocytes # 0.4 K/mcL (0.0-1.3); Monocytes % 7.1 %; Neutrophils # 4.5 K/mcL (1.6-8.9); Platelet Count 108 K/mcL (140-400); Red Blood Count 1.65 M/mcL (3.82-4.97); Segmented Neutrophils % 76.9 %; White Blood Count 5.9 K/mcL (4.3-11.1)
[2021-11-05] MEDS: Vancomycin 1,500 MG/265 ML IV.SOLN IVPB SCH (11:59)
[2021-11-05 12:01] LABS: Hemoglobin 5.5 g/dL (11.5-15.4)
[2021-11-05] MEDS ORDERED: 0.9 % Sodium Chloride 250 ML IVC SCH (12:15)
[2021-11-05] MEDS: Morphine Sulfate ER (12 HR) 30 MG TABLET.ER PO SCH ×2 (12:25→21:30)
[2021-11-05] MEDS: levoFLOXacin 750 MG/150 ML 750 MG/150 ML BAG IVPB SCH (17:16)
[2021-11-05] MEDS: GuaiFENesin Liq 200 MG/10 ML UDC PO PRN (20:07)
[2021-11-05] MEDS: traZODone 50 MG TABLET PO SCH (20:08)
[2021-11-05] MEDS: Letrozole 2.5 MG TABLET PO SCH (20:09)
[2021-11-05] MEDS: Topiramate 100 MG TABLET PO SCH (20:10)
[2021-11-06 02:57] LABS: Hematocrit 23.5 % (35.3-44.9); Hemoglobin 7.5 g/dL (11.5-15.4)
[2021-11-06] MEDS: Morphine Sulfate ER (12 HR) 30 MG TABLET.ER PO SCH ×3 (06:01→20:10)
[2021-11-06] MEDS ORDERED: NON-FORMULARY MEDICATION 1 EACH EACH (Topiramate [Topamax] 50 MG Tablet) PO SCH (09:00)
[2021-11-06] MEDS ORDERED: levoFLOXacin 750 MG/150 ML 750 MG/150 ML BAG IVPB SCH (09:00)
[2021-11-06] MEDS: Topiramate 25 MG TABLET PO SCH (09:14)
[2021-11-06] MEDS: Loratadine 10 MG TABLET PO SCH (09:14)
[2021-11-06] MEDS: lamoTRIgine 100 MG TABLET PO SCH ×2 (09:14→20:10)
[2021-11-06] MEDS: Famotidine 20 MG TABLET PO SCH ×2 (09:14→20:10)
[2021-11-06] MEDS: Aspirin Enteric Coated 325 MG Tablet PO SCH (09:15)
[2021-11-06] MEDS: polyethylene glycoL 3350 17 GM POWD.PACK PO SCH (09:15)
[2021-11-06 09:37] LABS: Basophils % 0.3 %; Eosinophils # 0.3 K/mcL (0.0-0.6); Eosinophils % 4.3 %; Hemoglobin 8.1 g/dL (11.5-15.4); Immature Granulocytes % 1.1 % (0-4); Lymphocytes # 0.9 K/mcL (0.6-4.6); Lymphocytes % 15.4 %; Mean Corpuscular HGB Conc 31.2 g/dL (31.6-35.5); Mean Corpuscular Hemoglobin 32.1 pg (28.0-33.3); Monocytes # 0.5 K/mcL (0.0-1.3); Monocytes % 7.4 %; Neutrophils # 4.4 K/mcL (1.6-8.9); Platelet Count 112 K/mcL (140-400); Red Blood Count 2.52 M/mcL (3.82-4.97); Red Cell Distribution Width 17.9 % (11.5-14.5); Segmented Neutrophils % 71.5 %; White Blood Count 6.1 K/mcL (4.3-11.1)
[2021-11-06 09:58] LABS: Mean Corpuscular Volume 103.2 fL (83.0-100.0)
[2021-11-06] MEDS ORDERED: *HR* HYDROmorphone (PF) 1 MG/ML SYRINGE IVP ONE (10:02)
[2021-11-06] MEDS: Tiotropium 10 INH DOSE IH SCH (10:16)
[2021-11-06] MEDS: Budesonide/Formoterol 160/4.5 1 PUFF INH IH SCH ×2 (10:17→20:06)
[2021-11-06 10:25] LABS: BUN/Creatinine Ratio 11 (6-26); Blood Urea Nitrogen 12 mg/dL (6-20); Calcium 8.1 mg/dL (8.6-10.3); Carbon Dioxide 16 mEq/L (23-29); Chloride 113 mEq/L (98-107); Glucose 117 mg/dL (70-105); Osmolality,Calculated 287 (280-300); Sodium 138 mEq/L (136-145); eGFR For African Americans > 60 (> 60); eGFR For Non-African Americans 52 (> 60)
[2021-11-06] MEDS: Vancomycin 1,500 MG/265 ML IV.SOLN IVPB SCH (10:28)
[2021-11-06] MEDS: levoFLOXacin 750 MG/150 ML 750 MG/150 ML BAG IVPB SCH (17:30)
[2021-11-06] MEDS: *HR* OxyCODONE Immed Rel 5 MG TABLET PO PRN (17:32)
[2021-11-06] MEDS: Magic Mouthwash 10 ML UD Cup PO PRN (20:06)
[2021-11-06] MEDS: Topiramate 100 MG TABLET PO SCH (20:07)
[2021-11-06] MEDS: traZODone 50 MG TABLET PO SCH (20:07)
[2021-11-06] MEDS: Letrozole 2.5 MG TABLET PO SCH (20:09)
[2021-11-06] MEDS: GuaiFENesin Liq 200 MG/10 ML UDC PO PRN (20:13)
[2021-11-06] MEDS: Ondansetron ODT 4 MG TAB.RAPDIS SL PRN (23:55)
[2021-11-07] MEDS: *HR* OxyCODONE Immed Rel 5 MG TABLET PO PRN ×3 (02:00→17:27)
[2021-11-07 03:43] LABS: Basophils # 0.1 K/mcL (0.0-0.2); Basophils % 0.7 %; Eosinophils # 0.4 K/mcL (0.0-0.6); Eosinophils % 5.1 %; Hematocrit 24.5 % (35.3-44.9); Hemoglobin 7.8 g/dL (11.5-15.4); Immature Granulocytes % 1.5 % (0-4); Lymphocytes # 1.1 K/mcL (0.6-4.6); Lymphocytes % 16.4 %; Mean Corpuscular HGB Conc 31.8 g/dL (31.6-35.5); Mean Corpuscular Hemoglobin 32.1 pg (28.0-33.3); Mean Corpuscular Volume 100.8 fL (83.0-100.0); Mean Platelet Volume 8.9 fL (9.4-12.4); Monocytes # 0.7 K/mcL (0.0-1.3); Monocytes % 9.4 %; Neutrophils # 4.6 K/mcL (1.6-8.9); Platelet Count 122 K/mcL (140-400); Red Blood Count 2.43 M/mcL (3.82-4.97); Red Cell Distribution Width 17.2 % (11.5-14.5); Segmented Neutrophils % 66.9 %; White Blood Count 6.9 K/mcL (4.3-11.1)
[2021-11-07 03:53] LABS: Calcium 8.6 mg/dL (8.6-10.3)
[2021-11-07] MEDS: Morphine Sulfate ER (12 HR) 30 MG TABLET.ER PO SCH ×3 (05:23→20:48)
[2021-11-07] MEDS: Aspirin Enteric Coated 325 MG Tablet PO SCH (09:14)
[2021-11-07] MEDS: lamoTRIgine 100 MG TABLET PO SCH ×2 (09:15→20:47)
[2021-11-07] MEDS: Topiramate 25 MG TABLET PO SCH (09:15)
[2021-11-07] MEDS: Famotidine 20 MG TABLET PO SCH ×2 (09:16→20:47)
[2021-11-07] MEDS: Loratadine 10 MG TABLET PO SCH (09:17)
[2021-11-07] MEDS: polyethylene glycoL 3350 17 GM POWD.PACK PO SCH (09:18)
[2021-11-07] MEDS: Tiotropium 10 INH DOSE IH SCH (10:25)
[2021-11-07] MEDS: Budesonide/Formoterol 160/4.5 1 PUFF INH IH SCH ×2 (10:25→21:10)
[2021-11-07] MEDS: levoFLOXacin 750 MG/150 ML 750 MG/150 ML BAG IVPB SCH (17:26)
[2021-11-07] MEDS: *HR* Rivaroxaban 10 MG TABLET PO SCH (17:27)
[2021-11-07] MEDS: GuaiFENesin Liq 200 MG/10 ML UDC PO PRN (20:46)
[2021-11-07] MEDS: Letrozole 2.5 MG TABLET PO SCH (20:47)
[2021-11-07] MEDS: Topiramate 100 MG TABLET PO SCH (20:48)
[2021-11-07] MEDS: traZODone 50 MG TABLET PO SCH (20:48)
[2021-11-08] MEDS: Morphine Sulfate ER (12 HR) 30 MG TABLET.ER PO SCH ×3 (05:06→19:41)
[2021-11-08 05:11] LABS: Hemoglobin 7.9 g/dL (11.5-15.4); Mean Corpuscular HGB Conc 30.4 g/dL (31.6-35.5); Mean Corpuscular Volume 105.3 fL (83.0-100.0); Mean Platelet Volume 8.9 fL (9.4-12.4); Platelet Count 118 K/mcL (140-400); Red Blood Count 2.47 M/mcL (3.82-4.97); Red Cell Distribution Width 16.8 % (11.5-14.5); White Blood Count 6.3 K/mcL (4.3-11.1)
[2021-11-08 05:32] LABS: Calcium 8.8 mg/dL (8.6-10.3)
[2021-11-08] MEDS: Magic Mouthwash 10 ML UD Cup PO PRN (08:19)
[2021-11-08] MEDS ORDERED: Ringers Solution, Lactated 1,000 ML IVC SCH (08:45)
[2021-11-08] MEDS: Tiotropium 10 INH DOSE IH SCH (09:37)
[2021-11-08] MEDS: Budesonide/Formoterol 160/4.5 1 PUFF INH IH SCH ×2 (09:37→20:56)
[2021-11-08] MEDS: Aspirin Enteric Coated 325 MG Tablet PO SCH (10:17)
[2021-11-08] MEDS: polyethylene glycoL 3350 17 GM POWD.PACK PO SCH (10:17)
[2021-11-08] MEDS: Topiramate 25 MG TABLET PO SCH (10:18)
[2021-11-08] MEDS: Loratadine 10 MG TABLET PO SCH (10:18)
[2021-11-08] MEDS: lamoTRIgine 100 MG TABLET PO SCH ×2 (10:21→19:39)
[2021-11-08] MEDS: Famotidine 20 MG TABLET PO SCH (10:21)
[2021-11-08] MEDS: *HR* OxyCODONE Immed Rel 5 MG TABLET PO PRN ×2 (10:22→23:20)
[2021-11-08 14:48] LABS: % Iron Saturation 14 % (15-50); Iron 30 mcg/dL (50-170); Transferrin 154 mg/dL (203-362)
[2021-11-08 15:05] LABS: Ferritin 432 ng/mL (10-120)
[2021-11-08] MEDS: levoFLOXacin 750 MG/150 ML 750 MG/150 ML BAG IVPB SCH (15:21)
[2021-11-08] MEDS: *HR* Rivaroxaban 10 MG TABLET PO SCH (17:18)
[2021-11-08] MEDS: traZODone 50 MG TABLET PO SCH (19:39)
[2021-11-08] MEDS: Topiramate 100 MG TABLET PO SCH (19:39)
[2021-11-08] MEDS: Letrozole 2.5 MG TABLET PO SCH (19:39)
[2021-11-08] MEDS: GuaiFENesin Liq 200 MG/10 ML UDC PO PRN (23:20)
[2021-11-09] MEDS: Ondansetron ODT 4 MG TAB.RAPDIS SL PRN ×2 (02:06→23:45)
[2021-11-09 02:51] LABS: Hemoglobin 8.4 g/dL (11.5-15.4); Mean Corpuscular HGB Conc 31.1 g/dL (31.6-35.5); Mean Corpuscular Hemoglobin 32.2 pg (28.0-33.3); Mean Corpuscular Volume 103.4 fL (83.0-100.0); Mean Platelet Volume 8.8 fL (9.4-12.4); Platelet Count 151 K/mcL (140-400); Red Blood Count 2.61 M/mcL (3.82-4.97); Red Cell Distribution Width 16.6 % (11.5-14.5)
[2021-11-09 03:07] LABS: BUN/Creatinine Ratio 13 (6-26); Blood Urea Nitrogen 24 mg/dL (6-20); Calcium 9.3 mg/dL (8.6-10.3); Carbon Dioxide 23 mEq/L (23-29); Chloride 108 mEq/L (98-107); Glucose 111 mg/dL (70-105); Osmolality,Calculated 295 (280-300); Sodium 140 mEq/L (136-145); eGFR For African Americans 35 (> 60); eGFR For Non-African Americans 29 (> 60)
[2021-11-09] MEDS: Famotidine 20 MG TABLET PO SCH (06:09)
[2021-11-09] MEDS: Morphine Sulfate ER (12 HR) 30 MG TABLET.ER PO SCH ×3 (06:14→20:51)
[2021-11-09] MEDS: Tiotropium 10 INH DOSE IH SCH (07:33)
[2021-11-09] MEDS: Budesonide/Formoterol 160/4.5 1 PUFF INH IH SCH ×2 (07:33→20:29)
[2021-11-09] MEDS ORDERED: Iron Sucrose Complex 200 MG in 0.9 % Sodium Chloride 100 ML IVPB ONE (09:13)
[2021-11-09] MEDS ORDERED: Ringers Solution, Lactated 1,000 ML IVC SCH (09:15)
[2021-11-09 10:08] LABS: Total Protein 6.6 g/dL (6.4-8.9)
[2021-11-09] MEDS: *HR* OxyCODONE Immed Rel 5 MG TABLET PO PRN ×2 (10:43→17:29)
[2021-11-09] MEDS: lamoTRIgine 100 MG TABLET PO SCH ×2 (10:43→20:53)
[2021-11-09] MEDS: Aspirin Enteric Coated 325 MG Tablet PO SCH (10:44)
[2021-11-09] MEDS: Topiramate 25 MG TABLET PO SCH (10:44)
[2021-11-09] MEDS: Loratadine 10 MG TABLET PO SCH (10:44)
[2021-11-09] MEDS: polyethylene glycoL 3350 17 GM POWD.PACK PO SCH (10:45)
[2021-11-09 11:10] LABS: Protein/Creatinine Ratio,Urine 0.12 mg/mg (0.00-0.20); Sodium, Urine 53.8 mEq/L
[2021-11-09 11:13] LABS: Bilirubin,Urine Negative (Negative); Blood,Urine Negative (Negative); Clarity,Urine Clear (Clear); Color,Urine Light-Yellow (Yellow); Glucose,Urine (UA) Normal (Normal); Ketones,Urine Negative (Negative); Leukocyte Esterase,Urine Negative (Negative); Nitrite,Urine Negative (Negative); Protein,Urine Negative (Neg-Trace); Specific Gravity,Urine 1.016 (1.010-1.025); Urobilinogen,Urine Normal (Normal)
[2021-11-09] MEDS: *HR* Rivaroxaban 10 MG TABLET PO SCH (17:26)
[2021-11-09] MEDS: Topiramate 100 MG TABLET PO SCH (20:52)
[2021-11-09] MEDS: traZODone 50 MG TABLET PO SCH (20:53)
[2021-11-09] MEDS: Letrozole 2.5 MG TABLET PO SCH (20:54)
[2021-11-10] MEDS: *HR* OxyCODONE Immed Rel 5 MG TABLET PO PRN ×3 (02:58→23:32)
[2021-11-10 04:09] LABS: Hematocrit 23.9 % (35.3-44.9); Hemoglobin 7.6 g/dL (11.5-15.4); Mean Corpuscular HGB Conc 31.8 g/dL (31.6-35.5); Mean Corpuscular Hemoglobin 32.8 pg (28.0-33.3); Mean Platelet Volume 9.3 fL (9.4-12.4); Platelet Count 131 K/mcL (140-400); Red Blood Count 2.32 M/mcL (3.82-4.97); Red Cell Distribution Width 16.3 % (11.5-14.5); White Blood Count 9.2 K/mcL (4.3-11.1)
[2021-11-10 04:25] LABS: Calcium 8.8 mg/dL (8.6-10.3); Potassium 3.7 mEq/L (3.5-5.1)
[2021-11-10] MEDS: Morphine Sulfate ER (12 HR) 30 MG TABLET.ER PO SCH ×3 (05:56→21:07)
[2021-11-10] MEDS: Famotidine 20 MG TABLET PO SCH (05:56)
[2021-11-10] MEDS: Budesonide/Formoterol 160/4.5 1 PUFF INH IH SCH ×2 (07:15→20:09)
[2021-11-10] MEDS: Tiotropium 10 INH DOSE IH SCH (07:15)
[2021-11-10] MEDS ORDERED: levoFLOXacin 750 MG TABLET PO SCH ×2 (09:00→15:00)
[2021-11-10] MEDS: Magic Mouthwash 10 ML UD Cup PO PRN (09:13)
[2021-11-10] MEDS: polyethylene glycoL 3350 17 GM POWD.PACK PO SCH (09:14)
[2021-11-10] MEDS: lamoTRIgine 100 MG TABLET PO SCH ×2 (09:15→21:08)
[2021-11-10] MEDS: Aspirin Enteric Coated 325 MG Tablet PO SCH (09:15)
[2021-11-10] MEDS: Loratadine 10 MG TABLET PO SCH (09:16)
[2021-11-10] MEDS: Topiramate 25 MG TABLET PO SCH (09:16)
[2021-11-10] MEDS: levoFLOXacin 750 MG TABLET PO SCH (18:21)
[2021-11-10] MEDS: traZODone 50 MG TABLET PO SCH (21:07)
[2021-11-10] MEDS: Topiramate 100 MG TABLET PO SCH (21:08)
[2021-11-10] MEDS: Letrozole 2.5 MG TABLET PO SCH (21:09)
[2021-11-10] MEDS: Ondansetron ODT 4 MG TAB.RAPDIS SL PRN (23:33)
[2021-11-11 04:42] LABS: Basophils % 0.7 %; Eosinophils # 0.4 K/mcL (0.0-0.6); Eosinophils % 7.3 %; Hematocrit 24.3 % (35.3-44.9); Hemoglobin 7.6 g/dL (11.5-15.4); Immature Granulocytes % 1.7 % (0-4); Lymphocytes % 21.3 %; Mean Corpuscular HGB Conc 31.3 g/dL (31.6-35.5); Mean Corpuscular Hemoglobin 32.8 pg (28.0-33.3); Mean Corpuscular Volume 104.7 fL (83.0-100.0); Monocytes # 0.5 K/mcL (0.0-1.3); Monocytes % 9.5 %; Neutrophils # 3.2 K/mcL (1.6-8.9); Nucleated Red Blood Cells 0.6 /100 WBC (0); Platelet Count 128 K/mcL (140-400); Red Blood Count 2.32 M/mcL (3.82-4.97); Red Cell Distribution Width 16.2 % (11.5-14.5); Segmented Neutrophils % 59.5 %; White Blood Count 5.4 K/mcL (4.3-11.1)
[2021-11-11 05:02] LABS: Calcium 8.6 mg/dL (8.6-10.3); Potassium 3.9 mEq/L (3.5-5.1)
[2021-11-11 05:11] LABS: Lymphocytes # 1.2 K/mcL (0.6-4.6)
[2021-11-11 06:16] LABS: Hypochromasia Present (Not Present); Platelet Estimate Slight Decrease (Normal)
[2021-11-11] MEDS: Morphine Sulfate ER (12 HR) 30 MG TABLET.ER PO SCH ×2 (06:17→12:59)
[2021-11-11] MEDS: Famotidine 20 MG TABLET PO SCH (06:17)
[2021-11-11] MEDS: Budesonide/Formoterol 160/4.5 1 PUFF INH IH SCH (07:34)
[2021-11-11] MEDS: Tiotropium 10 INH DOSE IH SCH (07:34)
[2021-11-11] MEDS: lamoTRIgine 100 MG TABLET PO SCH (07:42)
[2021-11-11] MEDS: Aspirin Enteric Coated 325 MG Tablet PO SCH (07:42)
[2021-11-11] MEDS: Loratadine 10 MG TABLET PO SCH (07:43)
[2021-11-11] MEDS: Topiramate 25 MG TABLET PO SCH (07:43)
[2021-11-11] MEDS: polyethylene glycoL 3350 17 GM POWD.PACK PO SCH (07:44)
[2021-11-11] MEDS: *HR* OxyCODONE Immed Rel 5 MG TABLET PO PRN (07:53)
[2021-11-11 11:26] VITALS: BP 130/59; PULSE 93; TEMP 97.5; O2SAT 98
[2021-11-11] MEDS: Ondansetron ODT 4 MG TAB.RAPDIS SL PRN (14:29)
[2021-11-11] MEDS: levoFLOXacin 750 MG TABLET PO SCH (14:29)
[2021-11-11] MEDS ORDERED: levoFLOXacin 750 MG TABLET PO SCH (15:00)
== END 2021-11-11 14:55 | DRG 720 ==
LOC: 3NENU → SUATTDRO 13:52
PROVIDERS: ADMIT Pharmacist; ATTEND Hospitalist